=== PATIENT | female | born 1955 | race Caucasian/White ===

== ENCOUNTER 2016-05-02 00:40 | Emergency (ER) | payer OTHER ==
[~2016-05-02] VITALS: Ht 162.6 cm; Wt 77.1 kg
== END 2016-05-02 02:08 | disposition home or self-care (01) ==
LOC: ER 00:40
DX: R51 Headache (principal); J32.9 Chronic sinusitis, unspecified; I25.2 Old myocardial infarction; Z88.5 Allergy status to narcotic agent
CPT/HCPCS: 99281; A4606; Z7502